=== PATIENT | female | born 1945 | race Caucasian/White ===

== ENCOUNTER 2017-07-26 14:38 | Emergency (ER) | payer MEDICARE, OTHER ==
[2017-07-26 17:38] LABS: KETONE, URINE AUTO RFX NEGATIVE (NEGATIVE); LEUKOCYTE ESTERASE UR AUTO RFX NEGATIVE (NEGATIVE); NITRITE, URINE AUTO RFX NEGATIVE (NEGATIVE); RBC, URINE AUTO RFX 1 /HPF (0-3); SPECIFIC GRAVITY UR AUTO RFX 1.009 (1.002-1.035); SQUAM EPITHELIAL CELL UR AURFX 1 /HPF (0-6); WBC, URINE AUTO RFX 0 /HPF (0-3)
== END 2017-07-26 18:05 | disposition home or self-care (01) ==
LOC: M ED 14:38
DX: R30.0 Dysuria (principal); Z88.0 Allergy status to penicillin; Z79.899 Other long term (current) drug therapy
CPT/HCPCS: 81001

== ENCOUNTER → 2017-11-20 | Outpatient (CLI) | payer MEDICARE, OTHER | LOC: M RAD 11:05 | DX: Z12.31 Encounter for screening mammogram for malignant neoplasm of breast (principal) | CPT/HCPCS: 77067 ==

== ENCOUNTER → 2020-10-12 | Outpatient (CLI) | payer MEDICARE, OTHER ==
[~2020-10-12] MED LIST: ESTR2TAB; FLAG500T; LEVA500T; LEVO125T4; LISI10TA22; LISI10TA4; SERO150T2; SIMV10TA2; SIMV10TA21; ZOLO100T
--- NOTE | 2020-10-12 12:40 | REP ---
INDICATION: SPRAIN LEFT RIBS. COMPARISON: None TECHNIQUE: Five views including frontal view of the chest FINDINGS: Multiple views of the left ribs show no fracture or osseous lesion. The accompanying frontal view of the chest shows no cardiomegaly, infiltrates, effusions, or pneumothoraces. IMPRESSION: Negative left rib series. <Electronically signed by Geovanni oNel > 10/12/20 [id number]
== END ==
LOC: M WUC 11:17
PROVIDERS: ATTEND Nurse Practitioner Family
DX: S23.41XA Sprain of ribs, initial encounter (principal); W01.0XXA Fall on same level from slipping, tripping and stumbling without subsequent striking against object, initial encounter

== ENCOUNTER → 2020-11-12 | Outpatient (CLI) | payer MEDICARE, OTHER ==
--- NOTE | 2020-11-12 15:35 | REP ---
INDICATION: ENCTR FOR SCREEN FOR MALIGNANT NEOPLASM OF BREAST. COMPARISON: 11/20/2017 as well as other prior exams. TECHNIQUE: MLO and CC views bilateral breasts with tomosynthesis. FINDINGS: Moderate fibroglandular tissue is present bilaterally. An oval nodule is seen inferiorly in the medial right breast. The majority appears fairly well-defined and smoothly marginated. Maximum diameter is 1.7 cm. In the upper-outer quadrant of the right breast there is a lobulated nodule measuring 1.6 cm in diameter. There is no other evidence of mass or suspicious clusters of microcalcifications. There are coarse benign type calcifications. The Volpara volumetric breast density pattern is B. IMPRESSION: BIRADS/ACR category 0, incomplete. Nodule lower inner right breast and upper outer quadrant right breast. Recommend spot compression views and ultrasound to further evaluate. This patient's Tyrer-Cuzick lifetime breast cancer risk assessment score is 7.8%. This mammogram was interpreted with the aid of an FDA-approved computer-aided detection system. The patient states she had a clinical breast exam in over 1 year ago. The patient letter being requested is M0. RECOMMENDATION: Recommend spot compression views and ultrasound right breast. <Electronically signed by Rito Castano > 11/12/20 [id number]
== END ==
LOC: M WHC 13:44
PROVIDERS: ATTEND Family Medicine
DX: Z12.31 Encounter for screening mammogram for malignant neoplasm of breast (principal)

== ENCOUNTER → 2020-12-10 | Outpatient (CLI) | payer MEDICARE, OTHER ==
--- NOTE | 2020-12-21 15:50 | REP ---
INDICATION: ADDL VIEWS RIGHT BREAST/NODULE; BREAST U/S RIGHT BREAST ADD VIEWS. COMPARISON: Comparison mammography is from October 07, 2015, November 20, 2017, November 12, 2020. TECHNIQUE: Magnified focal spot-compression CC and mL 0 views of the right breast are obtained. Targeted right breast sonography is performed in the upper outer and inferomedial quadrant of the right breast. The ultrasound was performed on a separate date. This mammogram was interpreted with the aid of an FDA-approved computer-aided detection system. FINDINGS: Scattered fibroglandular elements are seen. Secretory benign calcifications are noted. Magnified focal spot compression views confirm the presence of a dominant nodular opacity in the inferomedial and another in the upper outer quadrant of the right breast. On cyst diagnostic images however, particularly the MLO projection images, these both appear to compress to an appearance unchanged from the 2016 prior study. The Volpara volumetric breast density pattern is B. Targeted ultrasound: Targeted right breast sonography carried out on December 15, 2020 in conjunction with the mammographic findings demonstrates heterogeneous fibroglandular background echotexture. In the 5 o'clock position in the right breast there is a 1.2 x 2.1 x 0.6 cm cyst which is felt to account for the mammographic opacity in this location. It is located 3 cm from the nipple. There is a small well-circumscribed cyst 6 mm hypoechoic area adjacent. At 11 o'clock there is a grouping of cysts in the right breast measuring in aggregate, 1.7 x 0.8 x 1.6 cm. This 9 cm from the nipple and is felt to account for the mammographic opacity in the upper outer quadrant. Multiple other smaller cysts are seen. No suspicious sonographic feature. IMPRESSION: BIRADS/ACR category 2 benign right breast mammographic and sonographic findings. This patient's Tyrer-Cuzick lifetime breast cancer risk assessment score is 7.8%. RECOMMENDATION: Repeat screening mammography recommended 1 year (for women over 40). The patient letter being requested is M1. <Electronically signed by Troy Nuñez > 12/15/20 [id number]
== END ==
LOC: M WHC 13:37
PROVIDERS: ATTEND Family Medicine
DX: Z12.39 Encounter for other screening for malignant neoplasm of breast (principal); N60.11 Diffuse cystic mastopathy of right breast

== ENCOUNTER → 2020-12-15 | Outpatient (CLI) | payer MEDICARE, OTHER | LOC: M WHC 12:51 | PROVIDERS: ATTEND Family Medicine | DX: R92.2 Inconclusive mammogram (principal) ==

== ENCOUNTER → 2021-03-22 | Outpatient (CLI) | payer MEDICARE, OTHER ==
--- NOTE | 2021-03-22 15:11 | REP ---
INDICATION: R63.4 ABNORMAL WEIGHT LOSS COMPARISON: None. TECHNIQUE: PA and lateral. FINDINGS: The mediastinum and cardiac silhouette are normal. The lung julio are clear and without acute consolidation, effusion, or pneumothorax. The skeletal structures demonstrate osteopenia and degenerative changes along with chronic scoliosis. IMPRESSION: No acute cardiopulmonary process. <Electronically signed by Gilberto Rosario > 03/22/21 [id number]
== END ==
LOC: M CLY 14:31
PROVIDERS: ATTEND Family Medicine
DX: R63.4 Abnormal weight loss (principal)

== ENCOUNTER → 2021-10-07 | Outpatient (CLI) | payer MEDICARE, OTHER ==
[~2021-10-07] MED LIST changes: +GASTROGRAFIN SOLUTION 30ML (Q9963) ONE; +ISOVUE-370 76% 100ML VIAL ONE
== END ==
LOC: M PLAIMG 11:28
PROVIDERS: ATTEND Family Medicine
DX: R63.4 Abnormal weight loss (principal)
CPT/HCPCS: 74177; Q9963; Q9967

== ENCOUNTER → 2021-12-13 | Outpatient (CLI) | payer MEDICARE, OTHER ==
[~2021-12-13] MED LIST changes: -GASTROGRAFIN SOLUTION 30ML (Q9963) ONE; -ISOVUE-370 76% 100ML VIAL ONE
== END ==
LOC: M WHC 13:12
PROVIDERS: ATTEND Family Medicine
DX: Z12.31 Encounter for screening mammogram for malignant neoplasm of breast (principal)

== ENCOUNTER → 2021-12-28 | Outpatient (CLI) | payer MEDICARE, OTHER | LOC: M WHC 08:12 | PROVIDERS: ATTEND Family Medicine | DX: R92.2 Inconclusive mammogram (principal) | CPT/HCPCS: 76642; 77065; G0279 ==

== ENCOUNTER → 2022-01-17 | Outpatient (CLI) | payer MEDICARE, OTHER | LOC: M WHC 12:08 | PROVIDERS: ATTEND Internal Medicine Endocrinology, Diabetes & Metabolism | DX: E03.9 Hypothyroidism, unspecified (principal); M81.0 Age-related osteoporosis without current pathological fracture ==

== ENCOUNTER → 2022-08-08 | Outpatient (CLI) | payer MEDICARE, OTHER | LOC: M WHC 15:17 | PROVIDERS: ATTEND Family Medicine | DX: R92.2 Inconclusive mammogram (principal) | CPT/HCPCS: 77065; G0279 ==

== ENCOUNTER 2022-10-10 18:29 | Emergency (ER) | payer MEDICARE, OTHER ==
[~2022-10-10] VITALS: Ht 152.4 cm; Wt 49.0 kg
[2022-10-10 18:32] VITALS: BP 158/84; TEMP 98.1; O2SAT 96
[2022-10-10 20:10] LABS: RSV AMPLIFICATION NEGATIVE (NEGATIVE)
== END 2022-10-10 20:55 | disposition left against medical advice (07) ==
LOC: M ED 18:29
DX: Z53.21 Procedure and treatment not carried out due to patient leaving prior to being seen by health care provider (principal)

== ENCOUNTER → 2022-10-19 | Outpatient (CLI) | payer MEDICARE, OTHER | LOC: M WUC 15:23 | PROVIDERS: ATTEND Family Medicine | DX: R06.02 Shortness of breath (principal) ==

== ENCOUNTER 2022-11-14 18:27 | Inpatient (IN) | payer MEDICARE, OTHER ==
[~2022-11-14] VITALS: Ht 154.9 cm; Wt 42.3 kg
[2022-11-14 20:32] LABS: BASO # 0.1 10^3/uL (0.0-0.2); BASO % 0.9 % (0.0-1.0); EOS # 0.1 10^3/uL (0.0-0.5); EOS % 1.3 % (0.0-3.0); HEMATOCRIT 45.6 % (36.0-47.0); HEMOGLOBIN 14.9 g/dl (12.0-15.5); LYMPH # 2.1 10^3/uL (1.5-5.0); LYMPH % 37.9 % (24.0-44.0); MEAN CORPUSCULAR HEMOGLOBIN 32.5 pg (27.0-33.0); MEAN CORPUSCULAR HGB CONC 32.7 g/dl (32.0-36.5); MEAN CORPUSCULAR VOLUME 99.3 fl (80.0-96.0); MONO # 0.6 10^3/uL (0.0-0.8); MONO % 11.1 % (2.0-8.0); NEUTROPHILS # 2.6 10^3/uL (1.5-8.5); NEUTROPHILS % 48.4 % (36.0-66.0); PLATELET COUNT, AUTOMATED 153 10^3/uL (150-450); RED BLOOD COUNT 4.59 10^6/uL (4.00-5.40); WHITE BLOOD COUNT 5.4 10^3/uL (4.0-10.0)
[2022-11-14 20:42] LABS: INR 1.11; PARTIAL THROMBOPLASTIN TIME 27.2 SECONDS (24.8-34.2); PROTHROMBIN TIME 14.5 SECONDS (12.5-14.5)
[2022-11-14 20:50] LABS: CK-MB VALUE MASS 5.3 NG/ML (<3.6); LIPASE 36 U/L (12-53)
[2022-11-14 20:52] LABS: ALBUMIN 3.7 G/DL (3.2-5.2); ALKALINE PHOSPHATASE 107 U/L (46-116); ALT/SGPT 125 U/L (7.0-40); AST/SGOT 45 U/L (<34); BILIRUBIN,TOTAL 5.1 MG/DL (0.3-1.2); BLOOD UREA NITROGEN 34 MG/DL (9-23); CALCIUM LEVEL 8.6 MG/DL (8.3-10.6); CARBON DIOXIDE LEVEL 24 MMOL/L (20-31); CHLORIDE LEVEL 107 MMOL/L (98-107); CPK CREATINE PHOSPHOKINASE 137 U/L (34-145); CREATININE FOR GFR 0.74 MG/DL (0.55-1.30); GLOMERULAR FILTRATION RATE > 60.0 (>39); GLUCOSE, FASTING 89 MG/DL (74-106); MB/CK RELATIVE INDEX 3.86 (< OR =4); POTASSIUM SERUM 4.4 MMOL/L (3.5-5.1); SODIUM LEVEL 141 MMOL/L (136-145); TOTAL PROTEIN 7.1 G/DL (5.7-8.2)
[2022-11-15] MEDS ORDERED: FUROSEMIDE 40MG/4ML VIAL IV ONE (03:15)
[2022-11-15] MEDS ORDERED: ISOVUE-370 76% 100ML VIAL As Ordered ONE (03:18)
[2022-11-15 04:40] LABS: CK-MB VALUE MASS 3.2 NG/ML (<3.6)
[2022-11-15 04:42] LABS: MB/CK RELATIVE INDEX 3.72 (< OR =4)
[2022-11-15] MEDS ORDERED: VITA100093 PO (05:05)
[2022-11-15] MEDS ORDERED: CRAN400C PO (05:05)
[2022-11-15] MEDS ORDERED: OCUVTAB PO (05:05)
[2022-11-15] MEDS ORDERED: HOME MED LIST COMPLETE! XX SCH (05:05)
[2022-11-15] MEDS ORDERED: VITA500T40 PO (05:05)
[2022-11-15] MEDS ORDERED: VITA1CAP21 PO (05:05)
[2022-11-15] MEDS ORDERED: ACETAMINOPHEN TAB 650MG DOSE (2X325MG) PO PRN (05:25)
[2022-11-15 06:31] LABS: BASO # 0.1 10^3/uL (0.0-0.2); EOS # 0.1 10^3/uL (0.0-0.5); EOS % 1.4 % (0.0-3.0); HEMATOCRIT 44.8 % (36.0-47.0); LYMPH # 1.5 10^3/uL (1.5-5.0); LYMPH % 28.7 % (24.0-44.0); MEAN CORPUSCULAR HEMOGLOBIN 31.4 pg (27.0-33.0); MEAN CORPUSCULAR HGB CONC 31.3 g/dl (32.0-36.5); MEAN CORPUSCULAR VOLUME 100.4 fl (80.0-96.0); MONO # 0.6 10^3/uL (0.0-0.8); MONO % 11.5 % (2.0-8.0); NEUTROPHILS # 2.9 10^3/uL (1.5-8.5); PLATELET COUNT, AUTOMATED 158 10^3/uL (150-450); RED BLOOD COUNT 4.46 10^6/uL (4.00-5.40); WHITE BLOOD COUNT 5.1 10^3/uL (4.0-10.0)
[2022-11-15 07:15] LABS: ALBUMIN 3.2 G/DL (3.2-5.2); ALKALINE PHOSPHATASE 97 U/L (46-116); ALT/SGPT 103 U/L (7.0-40); AST/SGOT 48 U/L (<34); BILIRUBIN,TOTAL 5.2 MG/DL (0.3-1.2); BLOOD UREA NITROGEN 29 MG/DL (9-23); CALCIUM LEVEL 9.3 MG/DL (8.3-10.6); CARBON DIOXIDE LEVEL 24 MMOL/L (20-31); CHLORIDE LEVEL 104 MMOL/L (98-107); CHOLESTEROL LEVEL 150 MG/DL (<200); CREATININE FOR GFR 0.72 MG/DL (0.55-1.30); FREE T4 1.58 NG/DL (0.89-1.76); GLOMERULAR FILTRATION RATE > 60.0 (>39); GLUCOSE, FASTING 68 MG/DL (74-106); HDL CHOLESTEROL 49.9 MG/DL (>40); LDL CHOLESTEROL 87.9 MG/DL (<100); NON-HDL-C 100.1 MG/DL; POTASSIUM SERUM 4.3 MMOL/L (3.5-5.1); SODIUM LEVEL 141 MMOL/L (136-145); THYROID STIMULATING HORMONE 2.075 uIU/ML (0.55-4.78); TOTAL PROTEIN 6.3 G/DL (5.7-8.2); TRIGLYCERIDES LEVEL 61 MG/DL (<150)
[2022-11-15 08:14] VITALS: BP 127/69; TEMP 97.3; O2SAT 99
[2022-11-15] MEDS: CYANOCOBALAMIN 500 MCG TAB PO SCH (08:37)
[2022-11-15] MEDS: VITAMIN D 1,000 INTERNATIONAL UNITS TABLET PO SCH (08:37)
[2022-11-15] MEDS: FUROSEMIDE 40MG/4ML VIAL IV SCH ×2 (08:37→16:25)
[2022-11-15] MEDS: ENOXAPARIN 40MG/0.4ML SYRINGE (J1650 PER 10MG) SC SCH (08:37)
[2022-11-15] MEDS ORDERED: FUROSEMIDE 20MG/2ML VIAL IV SCH (09:00)
[2022-11-15] MEDS: OCUVITE 1 TAB PO SCH (09:35)
[2022-11-15 11:48] VITALS: BP 107/56; TEMP 96.7; O2SAT 100
[2022-11-15 15:51] LABS: BLOOD UREA NITROGEN 25 MG/DL (9-23); CALCIUM LEVEL 8.9 MG/DL (8.3-10.6); CARBON DIOXIDE LEVEL 31 MMOL/L (20-31); CHLORIDE LEVEL 103 MMOL/L (98-107); CREATININE FOR GFR 0.75 MG/DL (0.55-1.30); GLOMERULAR FILTRATION RATE > 60.0 (>39); GLUCOSE, FASTING 71 MG/DL (74-106); MAGNESIUM LEVEL 1.6 MG/DL (1.8-2.4); PHOSPHORUS LEVEL 4.2 MG/DL (2.4-5.1); POTASSIUM SERUM 3.3 MMOL/L (3.5-5.1); SODIUM LEVEL 143 MMOL/L (136-145)
[2022-11-15] MEDS ORDERED: MAG SULF 1GM/100ML (MAG RUN) 1 GM in IV 1 EA IV ONE (16:00)
[2022-11-15] MEDS: POTASSIUM CHLORIDE 10MEQ SR TABLET PO SCH ×2 (16:27→17:55)
[2022-11-15 16:37] VITALS: BP 119/72; TEMP 96.9; O2SAT 95
[2022-11-15 20:16] VITALS: BP 103/61; TEMP 97.3; O2SAT 100
[2022-11-15 23:38] VITALS: BP 98/58; TEMP 97.3; O2SAT 97
[2022-11-16 03:30] VITALS: BP 102/64; TEMP 97; O2SAT 99
[2022-11-16 06:12] LABS: HEMATOCRIT 45.2 % (36.0-47.0); HEMOGLOBIN 14.5 g/dl (12.0-15.5); MEAN CORPUSCULAR HEMOGLOBIN 32.4 pg (27.0-33.0); MEAN CORPUSCULAR HGB CONC 32.1 g/dl (32.0-36.5); MEAN CORPUSCULAR VOLUME 101.1 fl (80.0-96.0); PLATELET COUNT, AUTOMATED 173 10^3/uL (150-450); RED BLOOD COUNT 4.47 10^6/uL (4.00-5.40); WHITE BLOOD COUNT 4.9 10^3/uL (4.0-10.0)
[2022-11-16 06:43] LABS: ALBUMIN 2.9 G/DL (3.2-5.2); ALKALINE PHOSPHATASE 86 U/L (46-116); ALT/SGPT 77 U/L (7.0-40); AST/SGOT 19 U/L (<34); BILIRUBIN,TOTAL 4.3 MG/DL (0.3-1.2); BLOOD UREA NITROGEN 23 MG/DL (9-23); CARBON DIOXIDE LEVEL 33 MMOL/L (20-31); CHLORIDE LEVEL 106 MMOL/L (98-107); CREATININE FOR GFR 0.75 MG/DL (0.55-1.30); GLOMERULAR FILTRATION RATE > 60.0 (>39); GLUCOSE, FASTING 89 MG/DL (74-106); MAGNESIUM LEVEL 1.9 MG/DL (1.8-2.4); POTASSIUM SERUM 4.1 MMOL/L (3.5-5.1); SODIUM LEVEL 144 MMOL/L (136-145); TOTAL PROTEIN 5.9 G/DL (5.7-8.2)
[2022-11-16 08:49] VITALS: BP 118/79; TEMP 96.6; O2SAT 97
[2022-11-16] MEDS: CYANOCOBALAMIN 500 MCG TAB PO SCH (10:13)
[2022-11-16] MEDS: OCUVITE 1 TAB PO SCH (10:13)
[2022-11-16] MEDS: VITAMIN D 1,000 INTERNATIONAL UNITS TABLET PO SCH (10:13)
[2022-11-16] MEDS: ENOXAPARIN 40MG/0.4ML SYRINGE (J1650 PER 10MG) SC SCH (10:13)
[2022-11-16 14:38] VITALS: BP 110/76; TEMP 98.4; O2SAT 96
[2022-11-16 20:40] VITALS: BP 107/75; TEMP 98.1; O2SAT 98
[2022-11-17 05:23] VITALS: BP 105/74; TEMP 98.6; O2SAT 99
[2022-11-17 06:09] LABS: HEMATOCRIT 38.6 % (36.0-47.0); MEAN CORPUSCULAR HGB CONC 32.4 g/dl (32.0-36.5); MEAN CORPUSCULAR VOLUME 98.7 fl (80.0-96.0); PLATELET COUNT, AUTOMATED 146 10^3/uL (150-450); RED BLOOD COUNT 3.91 10^6/uL (4.00-5.40); WHITE BLOOD COUNT 4.6 10^3/uL (4.0-10.0)
[2022-11-17 06:25] LABS: ALBUMIN 2.6 G/DL (3.2-5.2); ALKALINE PHOSPHATASE 69 U/L (46-116); ALT/SGPT 58 U/L (7.0-40); AST/SGOT 27 U/L (<34); BILIRUBIN,TOTAL 2.8 MG/DL (0.3-1.2); BLOOD UREA NITROGEN 23 MG/DL (9-23); CALCIUM LEVEL 7.7 MG/DL (8.3-10.6); CARBON DIOXIDE LEVEL 28 MMOL/L (20-31); CHLORIDE LEVEL 108 MMOL/L (98-107); CREATININE FOR GFR 0.71 MG/DL (0.55-1.30); GLOMERULAR FILTRATION RATE > 60.0 (>39); GLUCOSE, FASTING 86 MG/DL (74-106); HEMOGLOBIN 12.5 g/dl (12.0-15.5); POTASSIUM SERUM 4.2 MMOL/L (3.5-5.1); SODIUM LEVEL 142 MMOL/L (136-145); TOTAL PROTEIN 5.1 G/DL (5.7-8.2)
[2022-11-17 09:00] VITALS: BP 99/68
[2022-11-17] MEDS ORDERED: FUROSEMIDE 20MG/2ML VIAL IV SCH (09:00)
[2022-11-17] MEDS ORDERED: FUROSEMIDE 40MG/4ML VIAL IV SCH (09:00)
[2022-11-17] MEDS: ENOXAPARIN 40MG/0.4ML SYRINGE (J1650 PER 10MG) SC SCH (09:04)
[2022-11-17] MEDS: OCUVITE 1 TAB PO SCH (09:05)
[2022-11-17] MEDS: VITAMIN D 1,000 INTERNATIONAL UNITS TABLET PO SCH (09:05)
[2022-11-17] MEDS: CYANOCOBALAMIN 500 MCG TAB PO SCH (09:05)
[2022-11-17] MEDS ORDERED: LASI20TA3 PO (11:00)
[2022-11-17] MEDS ORDERED: FUROSEMIDE 20 MG TAB PO ONE (11:15)
[2022-11-17 11:34] VITALS: BP 99/69
== END 2022-11-17 13:36 | disposition home or self-care (01) | DRG 948 ==
LOC: M ED 18:27 → M ED INP 11-15 05:23 → M PCU 11-15 08:11 → M MSPAV 11-16 08:55
PROVIDERS: ADMIT Internal Medicine; ATTEND Internal Medicine
PROC: B246ZZZ Ultrasonography of Right and Left Heart (ICD-10-PCS; principal; 2022-11-15)
DX: R60.0 Localized edema (principal); I47.20 Ventricular tachycardia, unspecified; I11.0 Hypertensive heart disease with heart failure; E78.5 Hyperlipidemia, unspecified; E03.9 Hypothyroidism, unspecified; Z79.899 Other long term (current) drug therapy; Z88.0 Allergy status to penicillin; F32.A Depression, unspecified; I50.9 Heart failure, unspecified; R74.01 Elevation of levels of liver transaminase levels; I48.91 Unspecified atrial fibrillation

== ENCOUNTER → 2022-11-22 | Outpatient (CLI) | payer MEDICARE, OTHER ==
[~2022-11-22] MED LIST changes: +CRAN400C PO; +LASI20TA3 PO; +OCUVTAB PO; +VITA100093 PO; +VITA1CAP21 PO; +VITA500T40 PO
== END ==
LOC: M RAD 10:01
PROVIDERS: ATTEND Family Medicine
DX: R74.01 Elevation of levels of liver transaminase levels (principal)

== ENCOUNTER → 2023-07-17 | Outpatient (CLI) | payer MEDICARE, OTHER | LOC: M WHC 14:05 | PROVIDERS: ATTEND Family Medicine | DX: R92.2 Inconclusive mammogram (principal) | CPT/HCPCS: 76642; 77066; G0279 ==

== ENCOUNTER 2023-07-25 13:00 | Emergency (ER) | payer MEDICARE, OTHER ==
[~2023-07-25] VITALS: Ht 152.4 cm; Wt 45.7 kg
[2023-07-25 13:02] VITALS: TEMP 98.2
[2023-07-25] MEDS ORDERED: SPIR-10 (13:08)
[2023-07-25] MEDS ORDERED: ATOR1TAB21 (13:08)
[2023-07-25] MEDS ORDERED: XARE10TA (13:08)
[2023-07-25] MEDS ORDERED: DIGO0.123 (13:08)
[2023-07-25] MEDS ORDERED: METO1TAB32 (13:08)
[2023-07-25] MEDS ORDERED: ENTR1TAB (13:08)
[2023-07-25 15:27] VITALS: BP 136/63; O2SAT 97
== END 2023-07-25 15:28 | disposition home or self-care (01) ==
LOC: M ED 13:00
DX: S70.02XA Contusion of left hip, initial encounter (principal); Y92.019 Unspecified place in single-family (private) house as the place of occurrence of the external cause; Y93.9 Activity, unspecified; Y99.9 Unspecified external cause status; W19.XXXA Unspecified fall, initial encounter; I10 Essential (primary) hypertension; J45.909 Unspecified asthma, uncomplicated; Z88.0 Allergy status to penicillin; Z79.899 Other long term (current) drug therapy

== ENCOUNTER → 2023-08-06 | Outpatient (CLI) | payer MEDICARE, OTHER ==
[~2023-08-06] MED LIST changes: +ATOR1TAB21; +DIGO0.123; +ENTR1TAB; +METO1TAB32; +SPIR-10; +XARE10TA
== END ==
LOC: M PLAIMG 08:37
PROVIDERS: ATTEND Internal Medicine Cardiovascular Disease
DX: I34.0 Nonrheumatic mitral (valve) insufficiency (principal); I50.42 Chronic combined systolic (congestive) and diastolic (congestive) heart failure

== ENCOUNTER 2023-10-21 09:57 | Observation (INO) | payer MEDICARE, OTHER ==
[~2023-10-21] VITALS: Ht 152.4 cm; Wt 42.7 kg
[~2023-10-21 09:57] MED LIST changes: -ATOR1TAB21; +ATOR1TAB21 PO; -CRAN400C PO; +CRANBERRY400 MG PO; -DIGO0.123; +DIGO0.123 PO; -ENTR1TAB; +ENTR1TAB PO; -METO1TAB32; +METO1TAB32 PO; -SPIR-10; +SPIR-10 PO; -XARE10TA; +XARE10TA PO
[2023-10-21 10:43] LABS: BASO % 0.2 % (0.0-1.0); EOS % 0.2 % (0.0-3.0); HEMATOCRIT 31.4 % (36.0-47.0); HEMOGLOBIN 10.3 g/dl (12.0-15.5); LYMPH % 11.9 % (24.0-44.0); MEAN CORPUSCULAR HEMOGLOBIN 32.8 pg (27.0-33.0); MEAN CORPUSCULAR HGB CONC 32.8 g/dl (32.0-36.5); MONO # 1.1 10^3/uL (0.0-0.8); MONO % 13.2 % (2.0-8.0); NEUTROPHILS # 6.3 10^3/uL (1.5-8.5); NEUTROPHILS % 73.9 % (36.0-66.0); PLATELET COUNT, AUTOMATED 225 10^3/uL (150-450); RED BLOOD COUNT 3.14 10^6/uL (4.00-5.40); WHITE BLOOD COUNT 8.5 10^3/uL (4.0-10.0)
[2023-10-21 10:57] LABS: INR 1.55; PARTIAL THROMBOPLASTIN TIME 39.7 SECONDS (24.8-34.2)
[2023-10-21 11:18] LABS: BLOOD UREA NITROGEN 18 MG/DL (9-23); CALCIUM LEVEL 8.7 MG/DL (8.3-10.6); CARBON DIOXIDE LEVEL 29 MMOL/L (20-31); CHLORIDE LEVEL 101 MMOL/L (98-107); CK-MB VALUE MASS 1.2 NG/ML (<3.6); CPK CREATINE PHOSPHOKINASE 43 U/L (34-145); GLOMERULAR FILTRATION RATE > 60.0 (>39); GLUCOSE, FASTING 119 MG/DL (74-106); MB/CK RELATIVE INDEX 2.79 (< OR =4); POTASSIUM SERUM 3.7 MMOL/L (3.5-5.1); SODIUM LEVEL 135 MMOL/L (136-145)
[2023-10-21 11:45] LABS: ALBUMIN 3.1 G/DL (3.2-5.2); ALKALINE PHOSPHATASE 139 U/L (46-116); ALT/SGPT 70 U/L (7.0-40); AST/SGOT 60 U/L (<34); BILIRUBIN,DIRECT 1.1 MG/DL (<0.4); BILIRUBIN,TOTAL 3.6 MG/DL (0.3-1.2); LIPASE 44 U/L (12-53); TOTAL PROTEIN 7.5 G/DL (5.7-8.2)
[2023-10-21] MEDS ORDERED: ISOVUE-370 76% 100ML VIAL As Ordered ONE (12:00)
[2023-10-21 12:17] LABS: APPEARANCE, URINE HAZY (CLEAR); BACTERIA, URINE AUTO 1+ (NEGATIVE); BILIRUBIN, URINE AUTO NEGATIVE (NEGATIVE); BLOOD, URINE BLOOD 1+ (NEGATIVE); COLOR, URINE AMBER (YELLOW); GLUCOSE, URINE (UA) AUTO NEGATIVE (NEGATIVE); KETONE, URINE AUTO TRACE mg/dL (NEGATIVE); LEUKOCYTE ESTERASE, URINE AUTO NEGATIVE (NEGATIVE); MUCUS, URINE SMALL (NEGATIVE); NITRITE, URINE AUTO NEGATIVE (NEGATIVE); PROTEIN, URINE AUTO 2+ mg/dL (NEGATIVE); RBC, URINE AUTO 13 /HPF (0-3); SPECIFIC GRAVITY URINE AUTO 1.018 (1.002-1.035); SQUAMOUS EPITHELIAL CELL UR AU 4 /HPF (0-6); WBC, URINE AUTO 4 /HPF (0-3)
[2023-10-21] MEDS: ONDANSETRON 4MG 2ML VIAL IV ONE (12:19)
[2023-10-21] MEDS: MORPHINE 2 MG/ML 1ML VIAL IV ONE (12:19)
[2023-10-21 14:21] LABS: HEPATITIS B SURFACE ANTIGEN NEGATIVE (NEGATIVE)
[2023-10-21] MEDS ORDERED: CRAN500C11 PO (14:29)
[2023-10-21] MEDS ORDERED: HOME MED LIST COMPLETE! XX SCH (14:30)
[2023-10-21 14:42] LABS: HEPATITIS B CORE ANTIBODY IGM NEGATIVE (NEGATIVE); HEPATITIS C VIRUS ABY INDEX < 0.02 INDEX (<0.8)
[2023-10-21] MEDS: RIVAROXABAN 10MG TAB (XARELTO) PO SCH (18:00)
[2023-10-21] MEDS: ENTRESTO 24-26MG TABLET (SACUBITRIL/VALSARTAN) PO SCH (21:00)
[2023-10-21] MEDS: ANALGESIC BALM CRM 3OZ TOP SCH (21:00)
[2023-10-21] MEDS ORDERED: MORPHINE 2 MG/ML 1ML VIAL IV PRN (21:20)
[2023-10-21] MEDS ORDERED: PILL CUTTER 1 EACH XX PRN (21:30)
[2023-10-22] MEDS: CYCLOBENZAPRINE 5MG TABLET PO ONE (00:36)
[2023-10-22] MEDS: LACTULOSE 20GM/30ML SYRUP UDC PO SCH (00:37)
[2023-10-22] MEDS: NS 500 ML IV ONE (00:37)
[2023-10-22 01:35] VITALS: BP 139/67; TEMP 98.1; O2SAT 99
[2023-10-22 04:10] VITALS: BP 134/65; TEMP 97.9; O2SAT 97
[2023-10-22 06:07] LABS: HEMATOCRIT 29.7 % (36.0-47.0); HEMOGLOBIN 9.8 g/dl (12.0-15.5); MEAN CORPUSCULAR HEMOGLOBIN 32.6 pg (27.0-33.0); MEAN CORPUSCULAR VOLUME 98.7 fl (80.0-96.0); PLATELET COUNT, AUTOMATED 227 10^3/uL (150-450); RED BLOOD COUNT 3.01 10^6/uL (4.00-5.40); WHITE BLOOD COUNT 7.5 10^3/uL (4.0-10.0)
[2023-10-22 06:41] LABS: ALBUMIN 2.7 G/DL (3.2-5.2); ALKALINE PHOSPHATASE 174 U/L (46-116); ALT/SGPT 99 U/L (7.0-40); AST/SGOT 101 U/L (<34); BILIRUBIN,TOTAL 2.6 MG/DL (0.3-1.2); BLOOD UREA NITROGEN 18 MG/DL (9-23); CALCIUM LEVEL 8.3 MG/DL (8.3-10.6); CARBON DIOXIDE LEVEL 26 MMOL/L (20-31); CHLORIDE LEVEL 107 MMOL/L (98-107); CREATININE FOR GFR 0.46 MG/DL (0.55-1.30); GLOMERULAR FILTRATION RATE > 60.0 (>39); GLUCOSE, FASTING 107 MG/DL (74-106); POTASSIUM SERUM 4.2 MMOL/L (3.5-5.1); SODIUM LEVEL 139 MMOL/L (136-145); TOTAL PROTEIN 7.1 G/DL (5.7-8.2)
[2023-10-22 08:00] VITALS: BP 159/72; TEMP 98.1; O2SAT 98
[2023-10-22] MEDS: CYANOCOBALAMIN 500 MCG TAB PO SCH (08:50)
[2023-10-22] MEDS: DIGOXIN 0.125 MG TAB PO SCH (08:50)
[2023-10-22] MEDS: VITAMIN D 1,000 INTERNATIONAL UNITS TABLET PO SCH (08:50)
[2023-10-22] MEDS: METOPROLOL SUCC *XL* 12.5MG PER 1/2 TAB (TopROL *XL*) PO SCH (08:50)
[2023-10-22] MEDS: SPIRONOLACTONE 12.5MG PER 1/2 TABLET PO SCH (08:51)
[2023-10-22] MEDS: OCUVITE 1 TAB PO SCH (08:51)
[2023-10-22 12:00] VITALS: BP 110/56; TEMP 97.7; O2SAT 96
[2023-10-22] MEDS: oxyCODONE 5MG TAB PO PRN (13:00)
[2023-10-22 19:42] VITALS: BP 113/65; TEMP 98.1; O2SAT 97
[2023-10-22] MEDS: ACETAMINOPHEN TAB 650MG DOSE (2X325MG) PO SCH (21:29)
[2023-10-23] VITALS: BP 118/55; TEMP 97.7; O2SAT 99
[2023-10-23 04:29] VITALS: BP 118/56; TEMP 98.1; O2SAT 99
[2023-10-23 08:00] VITALS: BP 126/62; TEMP 97; O2SAT 97
[2023-10-23 08:18] VITALS: BP 129/62
[2023-10-23 12:00] VITALS: BP 121/57; TEMP 97.3; O2SAT 98
[2023-10-23] MEDS ORDERED: OXYC-517 PO (13:11)
[2023-10-23] MEDS ORDERED: ECOT81TA5 PO (13:15)
== END 2023-10-23 14:25 | disposition home or self-care (01) ==
LOC: M ED 09:57 → M ED INP 09:58 → M MS5PR 10-22 01:35
PROVIDERS: ADMIT Preventive Medicine Undersea and Hyperbaric Medicine; ATTEND Student in an Organized Health Care Education/Training Program
DX: M54.2 Cervicalgia (principal); G89.29 Other chronic pain; M19.90 Unspecified osteoarthritis, unspecified site; R74.01 Elevation of levels of liver transaminase levels; I65.23 Occlusion and stenosis of bilateral carotid arteries; I50.22 Chronic systolic (congestive) heart failure; E03.9 Hypothyroidism, unspecified; I48.0 Paroxysmal atrial fibrillation; E78.5 Hyperlipidemia, unspecified; I11.0 Hypertensive heart disease with heart failure; I25.10 Atherosclerotic heart disease of native coronary artery without angina pectoris; R79.89 Other specified abnormal findings of blood chemistry; R53.1 Weakness; R17 Unspecified jaundice; R31.9 Hematuria, unspecified; Z90.710 Acquired absence of both cervix and uterus; Z98.890 Other specified postprocedural states; Z88.0 Allergy status to penicillin; J30.81 Allergic rhinitis due to animal (cat) (dog) hair and dander; Z79.899 Other long term (current) drug therapy; Z79.01 Long term (current) use of anticoagulants; Z79.82 Long term (current) use of aspirin
CPT/HCPCS: 36415; 71260; 72040; 74177; 74181; 76705; 80048; 80053; 80074; 80076; 80143; 80162; 81001; 82140; 82550; 82553; 83690; 83735; 84484; 85025; 85027; 85610; 85730; 87086; 93005; 93041; 93880; 94760; 96374; 96375; 97161; 97530; 99285; G0378; J2405; Q9967

== ENCOUNTER → 2023-10-26 | Outpatient (CLI) | payer MEDICARE, OTHER ==
[~2023-10-26] MED LIST changes: +CRAN500C11 PO; +ECOT81TA5 PO; +OXYC-517 PO
== END ==
LOC: M WHC 06:37
PROVIDERS: ATTEND Nurse Practitioner Family
DX: R94.5 Abnormal results of liver function studies (principal); K86.89 Other specified diseases of pancreas; D64.9 Anemia, unspecified

== ENCOUNTER → 2023-11-23 | Outpatient (CLI) | payer MEDICARE, OTHER ==
[2023-11-23 18:51] LABS: APPEARANCE, URINE HAZY (CLEAR); BACTERIA, URINE AUTO 1+ (NEGATIVE); BILIRUBIN, URINE AUTO NEGATIVE (NEGATIVE); BLOOD, URINE BLOOD NEGATIVE (NEGATIVE); CALCIUM OXALATE CRYSTALS SMALL; COLOR, URINE YELLOW (YELLOW); GLUCOSE, URINE (UA) AUTO NEGATIVE (NEGATIVE); KETONE, URINE AUTO NEGATIVE (NEGATIVE); LEUKOCYTE ESTERASE, URINE AUTO NEGATIVE (NEGATIVE); MUCUS, URINE SMALL (NEGATIVE); NITRITE, URINE AUTO NEGATIVE (NEGATIVE); PROTEIN, URINE AUTO NEGATIVE (NEGATIVE); RBC, URINE AUTO 1 /HPF (0-3); SPECIFIC GRAVITY URINE AUTO 1.025 (1.002-1.035); SQUAMOUS EPITHELIAL CELL UR AU 1 /HPF (0-6); UROBILINOGEN, URINE AUTO 0.2 mg/dL (0.0-2.0); WBC, URINE AUTO 1 /HPF (0-3)
== END ==
LOC: M WUC 15:23
PROVIDERS: ATTEND Family Medicine
DX: R30.0 Dysuria (principal)

== ENCOUNTER 2024-06-24 18:12 | Emergency (ER) | payer MEDICARE, OTHER ==
[~2024-06-24] VITALS: Ht 157.5 cm; Wt 45.4 kg
[~2024-06-24 18:12] MED LIST changes: -CRAN500C11 PO; +CVS500CA5 PO
[2024-06-25] MEDS ORDERED: TRAM50TA2 PO (03:25)
[2024-06-25 03:30] VITALS: BP 125/58; TEMP 98.2
[2024-06-25 03:34] VITALS: O2SAT 98
[2024-06-25] MEDS: traMADol 50 MG TAB PO ONE (03:34)
[2024-06-25] MEDS: traMADol 50 MG TAB (HOME DOSE PACK) PO ONE (03:36)
== END 2024-06-25 03:41 | disposition home or self-care (01) ==
LOC: M ED 18:12
DX: M76.02 Gluteal tendinitis, left hip (principal); I48.91 Unspecified atrial fibrillation; I50.22 Chronic systolic (congestive) heart failure; I11.0 Hypertensive heart disease with heart failure; E55.9 Vitamin D deficiency, unspecified; Z88.0 Allergy status to penicillin; Z91.09 Other allergy status, other than to drugs and biological substances; Z79.1 Long term (current) use of non-steroidal anti-inflammatories (NSAID); Z79.01 Long term (current) use of anticoagulants; Z79.899 Other long term (current) drug therapy

== ENCOUNTER → 2024-07-17 | Outpatient (REF) | payer MEDICARE, OTHER ==
[~2024-07-17] MED LIST changes: +TRAM50TA2 PO
[2024-07-17 17:13] LABS: GC DNA AMPLIFICATION NEGATIVE (NEGATIVE)
[2024-07-18 12:51] LABS: Trichomonas vaginalis (AMP) NOT DETECTED (NEGATIVE)
== END ==
LOC: M SFHCWAGY 13:08
PROVIDERS: ATTEND Nurse Practitioner Family
DX: Z11.3 Encounter for screening for infections with a predominantly sexual mode of transmission (principal)

== ENCOUNTER → 2024-07-17 | Outpatient (CLI) | payer MEDICARE, OTHER | LOC: M WHC 08:36 | PROVIDERS: ATTEND Family Medicine | DX: Z12.31 Encounter for screening mammogram for malignant neoplasm of breast (principal); R92.333 Mammographic heterogeneous density, bilateral breasts ==

== ENCOUNTER 2024-08-06 12:12 | Emergency (ER) | payer MEDICARE, OTHER ==
[~2024-08-06] VITALS: Ht 152.4 cm; Wt 43.9 kg
[2024-08-06 12:16] VITALS: TEMP 96.1
[2024-08-06 13:27] LABS: BASO % 0.8 % (0.0-1.0); EOS % 0.6 % (0.0-3.0); HEMATOCRIT 32.5 % (36.0-47.0); HEMOGLOBIN 10.6 g/dl (12.0-15.5); LYMPH # 2.1 10^3/uL (1.5-5.0); LYMPH % 40.8 % (24.0-44.0); MEAN CORPUSCULAR HEMOGLOBIN 32.7 pg (27.0-33.0); MEAN CORPUSCULAR HGB CONC 32.6 g/dl (32.0-36.5); MEAN CORPUSCULAR VOLUME 100.3 fl (80.0-96.0); MONO # 0.6 10^3/uL (0.0-0.8); MONO % 12.1 % (2.0-8.0); NEUTROPHILS # 2.3 10^3/uL (1.5-8.5); NEUTROPHILS % 45.3 % (36.0-66.0); PLATELET COUNT, AUTOMATED 165 10^3/uL (150-450); RED BLOOD COUNT 3.24 10^6/uL (4.00-5.40)
[2024-08-06 14:02] LABS: ALBUMIN 4.1 G/DL (3.2-5.2); ALKALINE PHOSPHATASE 74 U/L (35-104); ALT/SGPT 24 U/L (7.0-40); AST/SGOT 37 U/L (<34); BILIRUBIN,TOTAL 2.9 MG/DL (0.3-1.2); BLOOD UREA NITROGEN 25 MG/DL (9-23); CALCIUM LEVEL 8.5 MG/DL (8.3-10.6); CARBON DIOXIDE LEVEL 26 MMOL/L (20-31); CHLORIDE LEVEL 104 MMOL/L (98-107); CK-MB VALUE MASS 1.3 NG/ML (<3.6); CREATININE FOR GFR 0.63 MG/DL (0.55-1.30); GLOMERULAR FILTRATION RATE > 60.0 (>39); GLUCOSE, FASTING 94 MG/DL (74-106); MAGNESIUM LEVEL 2.2 MG/DL (1.8-2.4); POTASSIUM SERUM 4.6 MMOL/L (3.5-5.1); SODIUM LEVEL 142 MMOL/L (136-145); TOTAL PROTEIN 8.1 G/DL (5.7-8.2)
[2024-08-06 14:07] LABS: CPK CREATINE PHOSPHOKINASE 120 U/L (34-145); MB/CK RELATIVE INDEX 1.08 (< OR =4)
[2024-08-06 14:45] VITALS: BP 128/59
[2024-08-06 15:00] VITALS: O2SAT 100
== END 2024-08-06 15:04 | disposition home or self-care (01) ==
LOC: M ED 12:12
DX: I49.3 Ventricular premature depolarization (principal); I48.91 Unspecified atrial fibrillation; I50.22 Chronic systolic (congestive) heart failure; I11.0 Hypertensive heart disease with heart failure; E78.5 Hyperlipidemia, unspecified; Z88.0 Allergy status to penicillin; Z91.09 Other allergy status, other than to drugs and biological substances; Z79.1 Long term (current) use of non-steroidal anti-inflammatories (NSAID); Z79.01 Long term (current) use of anticoagulants; Z79.899 Other long term (current) drug therapy

== ENCOUNTER → 2024-11-12 | Outpatient (CLI) | payer MEDICARE, OTHER ==
[2024-11-12 12:13] LABS: BASO # 0.0 10^3/uL (0.0-0.2); BASO % 0.9 % (0.0-1.0); EOS # 0.1 10^3/uL (0.0-0.5); EOS % 1.4 % (0.0-3.0); LYMPH # 1.9 10^3/uL (1.5-5.0); LYMPH % 43.9 % (24.0-44.0); MONO # 0.5 10^3/uL (0.0-0.8); MONO % 12.5 % (2.0-8.0); NEUTROPHILS # 1.8 10^3/uL (1.5-8.5); NEUTROPHILS % 41.1 % (36.0-66.0); PLATELET COUNT, AUTOMATED 171 10^3/uL (150-450)
[2024-11-12 12:24] LABS: DIGOXIN LEVEL 0.4 NG/ML (0.8-2.0)
[2024-11-12 12:27] LABS: VITAMIN B12 LEVEL 1860 PG/ML (211-911)
[2024-11-12 12:28] LABS: ALT/SGPT 20 U/L (7.0-40); AST/SGOT 25 U/L (<34); CALCIUM LEVEL 8.9 MG/DL (8.3-10.6); CARBON DIOXIDE LEVEL 28 MMOL/L (20-31); CHLORIDE LEVEL 106 MMOL/L (98-107); CHOLESTEROL LEVEL 110 MG/DL (<200); CHOLESTEROL RISK RATIO 1.89 (<5); CREATININE FOR GFR 0.68 MG/DL (0.55-1.30); GLOMERULAR FILTRATION RATE 89.6 (>39); LDL CHOLESTEROL 42.2 MG/DL (<100); NON-HDL-C 51.8 MG/DL; POTASSIUM SERUM 4.5 MMOL/L (3.5-5.1); SODIUM LEVEL 144 MMOL/L (136-145); TOTAL 25(OH) VITAMIN D 52.4 NG/ML (20.0-100.0); TRIGLYCERIDES LEVEL 48 MG/DL (<150)
[2024-11-12 12:48] LABS: PLATELET ESTIMATE NORMAL (NORMAL)
== END ==
LOC: M LAB 10:15
PROVIDERS: ATTEND Family Medicine
DX: E55.9 Vitamin D deficiency, unspecified (principal); E03.9 Hypothyroidism, unspecified; D64.9 Anemia, unspecified

== ENCOUNTER → 2024-11-12 | Outpatient (CLI) | payer MEDICARE, OTHER | LOC: M CARPUL 10:09 | PROVIDERS: ATTEND Registered Nurse | DX: I34.0 Nonrheumatic mitral (valve) insufficiency (principal); E78.00 Pure hypercholesterolemia, unspecified; E55.9 Vitamin D deficiency, unspecified; E03.9 Hypothyroidism, unspecified; D64.9 Anemia, unspecified ==

== ENCOUNTER → 2025-01-08 | Outpatient (REF) | payer MEDICARE, OTHER ==
[~2025-01-08] MED LIST changes: +HYDR-3713 PO; +MIRA3350 PO
[2025-01-08 17:01] LABS: Trichomonas vaginalis (AMP) NOT DETECTED (NEGATIVE)
[2025-01-08 17:24] LABS: GC DNA AMPLIFICATION NEGATIVE (NEGATIVE)
== END ==
LOC: M SFHCWAGY 15:16
PROVIDERS: ATTEND Nurse Practitioner Family
DX: N73.9 Female pelvic inflammatory disease, unspecified (principal); Z11.3 Encounter for screening for infections with a predominantly sexual mode of transmission

== ENCOUNTER 2025-01-11 14:59 | Emergency (ER) | payer MEDICARE, OTHER ==
[~2025-01-11] VITALS: Ht 152.4 cm; Wt 42.1 kg
[~2025-01-11 14:59] MED LIST changes: -HYDR-3713 PO; -MIRA3350 PO
[2025-01-11] MEDS ORDERED: ONDANSETRON 4MG ORAL DISINTEGRATING TAB PO ONE (16:30)
[2025-01-11] MEDS ORDERED: HYDR-3713 PO (16:33)
[2025-01-11] MEDS ORDERED: XARE10TA PO (16:33)
[2025-01-11] MEDS ORDERED: MIRA3350 PO (16:33)
[2025-01-11] MEDS: ONDANSETRON 4MG 2ML VIAL IV ONE (17:45)
[2025-01-11] MEDS: MORPHINE 2 MG/ML 1 ML VIAL IV PRN (17:46)
[2025-01-11 18:03] LABS: BASO # 0.0 10^3/uL (0.0-0.2); BASO % 0.4 % (0.0-1.0); EOS # 0.1 10^3/uL (0.0-0.5); EOS % 0.7 % (0.0-3.0); LYMPH # 1.1 10^3/uL (1.5-5.0); LYMPH % 14.1 % (24.0-44.0); MONO # 0.8 10^3/uL (0.0-0.8); MONO % 10.0 % (2.0-8.0); NEUTROPHILS # 5.9 10^3/uL (1.5-8.5); NEUTROPHILS % 73.8 % (36.0-66.0); PLATELET COUNT, AUTOMATED 182 10^3/uL (150-450)
[2025-01-11 18:18] LABS: CALCIUM LEVEL 8.7 MG/DL (8.3-10.6); CARBON DIOXIDE LEVEL 26 MMOL/L (20-31); CHLORIDE LEVEL 104 MMOL/L (98-107); CREATININE FOR GFR 0.62 MG/DL (0.55-1.30); GLOMERULAR FILTRATION RATE > 90.0 (>39); POTASSIUM SERUM 4.3 MMOL/L (3.5-5.1); SODIUM LEVEL 141 MMOL/L (136-145)
[2025-01-11 18:24] LABS: INR 0.97
[2025-01-11 19:38] VITALS: BP 133/63; TEMP 98.1; O2SAT 97
== END 2025-01-11 20:07 | disposition home or self-care (01) ==
LOC: M ED 14:59
DX: S42.252A Displaced fracture of greater tuberosity of left humerus, initial encounter for closed fracture (principal); S42.292A Other displaced fracture of upper end of left humerus, initial encounter for closed fracture; Y92.019 Unspecified place in single-family (private) house as the place of occurrence of the external cause; Y93.9 Activity, unspecified; Y99.9 Unspecified external cause status; W10.8XXA Fall (on) (from) other stairs and steps, initial encounter; E03.9 Hypothyroidism, unspecified; Z79.1 Long term (current) use of non-steroidal anti-inflammatories (NSAID); Z79.01 Long term (current) use of anticoagulants; Z79.899 Other long term (current) drug therapy; Z88.0 Allergy status to penicillin; Z91.09 Other allergy status, other than to drugs and biological substances
CPT/HCPCS: 70450; 73020; 73030; 73200; 80048; 85025; 85610; 93005; 96374; 96375; 99284; J2405

== ENCOUNTER → 2025-01-21 | Outpatient (CLI) | payer MEDICARE ==
[~2025-01-21] MED LIST changes: +HYDR-3713 PO; +MIRA3350 PO
== END ==
LOC: M SOG 07:27
PROVIDERS: ATTEND Orthopaedic Surgery
DX: M25.512 Pain in left shoulder (principal)

== ENCOUNTER → 2025-02-04 | Outpatient (CLI) | payer MEDICARE | LOC: M SOG 07:18 | PROVIDERS: ATTEND Orthopaedic Surgery | DX: S42.212D Unspecified displaced fracture of surgical neck of left humerus, subsequent encounter for fracture with routine healing (principal) ==

== ENCOUNTER → 2025-02-25 | Outpatient (CLI) | payer MEDICARE | LOC: M SOG 07:27 | PROVIDERS: ATTEND Orthopaedic Surgery | DX: S42.212D Unspecified displaced fracture of surgical neck of left humerus, subsequent encounter for fracture with routine healing (principal); M25.512 Pain in left shoulder ==

== ENCOUNTER 2025-03-03 10:15 | Outpatient (RCR) | payer MEDICARE | END 2025-03-06 | LOC: M PT 10:15 | PROVIDERS: ATTEND Orthopaedic Surgery | DX: S42.212A Unspecified displaced fracture of surgical neck of left humerus, initial encounter for closed fracture (principal) ==

== ENCOUNTER 2025-03-26 10:10 | Outpatient (RCR) | payer MEDICARE | END 2025-04-05 | LOC: M PT 10:10 | PROVIDERS: ATTEND Orthopaedic Surgery | DX: S42.212D Unspecified displaced fracture of surgical neck of left humerus, subsequent encounter for fracture with routine healing (principal); M25.512 Pain in left shoulder ==

== ENCOUNTER → 2025-04-08 | Outpatient (CLI) | payer MEDICARE | LOC: M SOG 08:07 | PROVIDERS: ATTEND Orthopaedic Surgery | DX: Z53.9 Procedure and treatment not carried out, unspecified reason (principal) ==

== ENCOUNTER → 2025-04-16 | Outpatient (CLI) | payer MEDICARE, OTHER | LOC: M SOG 07:34 | PROVIDERS: ATTEND Orthopaedic Surgery | DX: M25.512 Pain in left shoulder (principal); S42.212D Unspecified displaced fracture of surgical neck of left humerus, subsequent encounter for fracture with routine healing ==